=== PATIENT | female | born 1970 | race Two or more races ===

== ENCOUNTER 2021-02-04 16:10 | Inpatient (IN) | payer BC, OTHER ==
[~2021-02-04] VITALS: Ht 154.9 cm; Wt 98.5 kg
[2021-02-04 18:39] LABS: Basophils # (auto) 0 10 ^3/uL (0-0.2); Basophils % (auto) 0.3 % (0.0-2.0); Eosinophils # (auto) 0.2 10 ^3/uL (0-0.8); Eosinophils % (auto) 1.5 % (0.0-7.0); Hemoglobin 14.4 g/dL (12.2-16.2); Lymphocytes # (auto) 4.7 10 ^3/uL (0.4-5.4); Lymphocytes % (auto) 31.7 % (10.0-50.0); Mean Corpuscular Hemoglobin 28.6 pg (28.0-32.0); Mean Corpuscular Hgb Conc. 33.4 g/dL (32.0-36.0); Mean Corpuscular Volume 85.4 fL (80.0-100.0); Monocytes % (auto) 6.5 % (0.0-12.0); Nucleated Red Blood Cells % 0.1 %; Red Blood Cells 5.04 10^6/uL (4.0-5.20)
[2021-02-04 18:50] LABS: Chloride 101 mmol/L (98-107); Potassium 3.8 mmol/L (3.5-5.1); Sodium 135 mmol/L (136-145)
[2021-02-04 18:59] LABS: Alanine Aminotransferase 34 U/L (13-56); Albumin 3.3 g/dL (3.4-5.0); Alkaline Phosphatase 130 U/L (45-117); Anion Gap 5 (5-15); Aspartate Aminotransferase 20 U/L (15-37); BUN/Creatinine Ratio 14.1; Bilirubin, Total 0.2 mg/dL (0.2-1.0); Blood Urea Nitrogen 12 mg/dL (7-18); Calcium 9.1 mg/dL (8.5-10.1); Carbon Dioxide 29 mmol/L (21-32); GFR African American 91 mL/min; GFR Non-African American 75 mL/min; Glucose 342 mg/dL (74-106); Total Protein 8.4 g/dL (6.4-8.2)
[2021-02-04] MEDS ORDERED: HYDROcodone-ACET 5/325MG TAB PO ONE (22:00)
[2021-02-04] MEDS ORDERED: SODIUM CHLORIDE 0.9% 1,000 ML IV ONE (22:15)
[2021-02-04] MEDS: KETOROLAC TROMETH 60MG/2ML VIAL IM ONE (23:07)
[2021-02-05] MEDS ORDERED: HYDROcodone-ACET 7.5/325MG TAB PO ONE (03:45)
[2021-02-05] MEDS: KETOROLAC TROMETH 60MG/2ML VIAL IM ONE (04:41)
[2021-02-05] MEDS ORDERED: AZITHROMYCIN 500MG/ 250ML 250 ML IV ONE (07:15)
[2021-02-05] MEDS ORDERED: DOCUSATE SOD 100 MG CAP PO PRN (07:15)
[2021-02-05] MEDS ORDERED: NITROGLYCERIN 0.4 MG SL TAB SL PRN (07:15)
[2021-02-05] MEDS ORDERED: DEXTROSE (50%) 50ML SYRG IV PRN (07:15)
[2021-02-05] MEDS ORDERED: MORPHINE SULFATE INJECTION 2 MG/ML SYRG IV PRN (07:15)
[2021-02-05] MEDS ORDERED: ONDANSETRON HCL 4 MG/2 ML VIAL IV PRN (07:15)
[2021-02-05] MEDS ORDERED: SODIUM CHLORIDE 0.9% 1,000 ML IV ONE (07:15)
[2021-02-05] MEDS ORDERED: ACETAMINOPHEN 325 MG TAB PO PRN (07:15)
[2021-02-05] MEDS ORDERED: TEMAZEPAM 15 MG CAP PO PRN (07:15)
[2021-02-05] MEDS ORDERED: hydrALAZINE HCL 20 MG/ML VL IV PRN (07:15)
[2021-02-05 08:06] LABS: Cholesterol 163 mg/dL (< 200); HDL Cholesterol 65 mg/dL (40-59); LDL Cholesterol 86 mg/dL (< 100); Triglycerides 82 mg/dL (< 150)
[2021-02-05] MEDS: ZINC SULFATE 220mg CAP or TAB PO SCH (09:26)
[2021-02-05] MEDS: MULTIPLE VITAMIN TAB PO SCH (09:27)
[2021-02-05] MEDS: ASCORBIC ACID 500 MG TAB PO SCH ×2 (09:27→22:15)
[2021-02-05] MEDS: ENOXAPARIN SOD 40 MG/0.4 ML SYRINGE SC SCH (09:27)
[2021-02-05] MEDS: FAMOTIDINE 20 MG TAB PO SCH ×2 (09:27→22:15)
[2021-02-05] MEDS: ENALAPRIL MALEATE 10 MG TAB PO SCH (09:44)
[2021-02-05 09:59] LABS: Urine Bacteria NONE SEEN /hpf (None Seen); Urine Blood Negative /uL (Negative); Urine Mucus FEW (None Seen); Urine Specific Gravity 1.017 (1.001-1.035); Urine WBC <1 /hpf (0 - 5)
[2021-02-05 10:41] VITALS: BP 133/71
[2021-02-05] MEDS: ACCU-CHEK COMFORT CURVE STRIP VI SCH ×3 (12:39→22:49)
[2021-02-05] MEDS: InsuLIN REG 1unit/0.01ml Soln (100units/ml) SC SCH ×3 (12:46→23:14)
[2021-02-05] MEDS: MORPHINE SULFATE 4 MG/ML SYR/VIAL IV PRN ×2 (13:04→18:40)
[2021-02-05] MEDS ORDERED: SUMAtriptan SUCCINATE 25 MG TAB PO ONE (15:45)
[2021-02-05] MEDS ORDERED: AMLO-489 PO (18:49)
[2021-02-05] MEDS ORDERED: OMEP-434 PO (18:49)
[2021-02-05] MEDS ORDERED: METF-370 PO (18:49)
[2021-02-05] MEDS ORDERED: ENAL20TA8 PO (18:49)
[2021-02-05] MEDS ORDERED: GLIM4TAB42 PO (18:49)
[2021-02-05] MEDS: HYDROcodone-ACET 5/325MG TAB PO PRN (22:26)
[2021-02-05 22:32] VITALS: BP 148/67
[2021-02-06 04:28] VITALS: BP 124/74
[2021-02-06] MEDS: HYDROcodone-ACET 5/325MG TAB PO PRN ×2 (05:01→21:16)
[2021-02-06] MEDS: ACCU-CHEK COMFORT CURVE STRIP VI SCH ×4 (06:27→21:20)
[2021-02-06] MEDS: InsuLIN REG 1unit/0.01ml Soln (100units/ml) SC SCH ×4 (06:31→22:23)
[2021-02-06 06:39] LABS: Basophils # (auto) 0.1 10 ^3/uL (0-0.2); Basophils % (auto) 0.8 % (0.0-2.0); Eosinophils # (auto) 0.2 10 ^3/uL (0-0.8); Eosinophils % (auto) 1.5 % (0.0-7.0); Hematocrit 40.2 % (36.0-46.0); Hemoglobin 13.3 g/dL (12.2-16.2); Lymphocytes # (auto) 5.4 10 ^3/uL (0.4-5.4); Lymphocytes % (auto) 38.8 % (10.0-50.0); Mean Corpuscular Hemoglobin 28.1 pg (28.0-32.0); Mean Corpuscular Hgb Conc. 33.2 g/dL (32.0-36.0); Mean Corpuscular Volume 84.7 fL (80.0-100.0); Monocytes # (auto) 0.8 10 ^3/uL (0-1.3); Neutrophils # (auto) 7.4 10 ^3/uL (1.6-8.6); Neutrophils % (auto) 52.9 % (37.0-80.0); Nucleated Red Blood Cells % 0.1 %; Red Blood Cells 4.74 10^6/uL (4.0-5.20); Red Cell Distribution Width 13.8 % (11.8-14.3)
[2021-02-06 06:43] LABS: Albumin 2.8 g/dL (3.4-5.0); BUN/Creatinine Ratio 13.9; Calcium 8.3 mg/dL (8.5-10.1)
[2021-02-06 06:45] LABS: Bilirubin, Total 0.4 mg/dL (0.2-1.0); Total Protein 7.2 g/dL (6.4-8.2)
[2021-02-06 08:00] VITALS: BP 133/86
[2021-02-06 09:00] VITALS: BP 133/86
[2021-02-06] MEDS: MORPHINE SULFATE 4 MG/ML SYR/VIAL IV PRN ×2 (09:35→19:09)
[2021-02-06] MEDS: ENOXAPARIN SOD 40 MG/0.4 ML SYRINGE SC SCH (09:35)
[2021-02-06] MEDS: ASCORBIC ACID 500 MG TAB PO SCH ×2 (09:37→21:14)
[2021-02-06] MEDS: ENALAPRIL MALEATE 10 MG TAB PO SCH (09:37)
[2021-02-06] MEDS: ZINC SULFATE 220mg CAP or TAB PO SCH (09:37)
[2021-02-06] MEDS: MULTIPLE VITAMIN TAB PO SCH (09:37)
[2021-02-06] MEDS: FAMOTIDINE 20 MG TAB PO SCH ×2 (09:38→21:15)
[2021-02-06] MEDS ORDERED: LORazepam 2MG/ML-1ML VIAL IV PRN (09:45)
[2021-02-06] MEDS: ASPirin-EC 81 mg tab PO SCH (12:29)
[2021-02-06 13:00] VITALS: BP 101/57
[2021-02-06 17:00] VITALS: BP 130/82
[2021-02-06] MEDS: ATORVASTATIN 20 MG TAB PO SCH (21:16)
[2021-02-06 22:00] VITALS: BP 130/73
[2021-02-07 05:00] VITALS: BP 102/61
[2021-02-07] MEDS: MORPHINE SULFATE 4 MG/ML SYR/VIAL IV PRN (05:53)
[2021-02-07] MEDS: ACCU-CHEK COMFORT CURVE STRIP VI SCH ×4 (06:40→21:25)
[2021-02-07] MEDS: InsuLIN REG 1unit/0.01ml Soln (100units/ml) SC SCH ×4 (06:41→22:00)
[2021-02-07 08:49] VITALS: BP 134/73
[2021-02-07] MEDS: ASPirin-EC 81 mg tab PO SCH (10:18)
[2021-02-07] MEDS: HYDROcodone-ACET 5/325MG TAB PO PRN (10:19)
[2021-02-07] MEDS: ZINC SULFATE 220mg CAP or TAB PO SCH (10:19)
[2021-02-07] MEDS: ASCORBIC ACID 500 MG TAB PO SCH ×2 (10:19→22:00)
[2021-02-07] MEDS: MULTIPLE VITAMIN TAB PO SCH (10:19)
[2021-02-07] MEDS: ENOXAPARIN SOD 40 MG/0.4 ML SYRINGE SC SCH (10:20)
[2021-02-07] MEDS: ENALAPRIL MALEATE 10 MG TAB PO SCH (10:20)
[2021-02-07] MEDS: FAMOTIDINE 20 MG TAB PO SCH ×2 (10:20→22:00)
[2021-02-07 13:00] VITALS: BP 131/70
[2021-02-07] MEDS ORDERED: ALPRAZolam 0.5 MG TAB PO PRN (14:15)
[2021-02-07] MEDS ORDERED: ASPI-543 PO (15:47)
[2021-02-07] MEDS ORDERED: CLOP75TA28 PO (15:47)
[2021-02-07 17:00] VITALS: BP 125/73
[2021-02-07] MEDS: MECLIZINE HCL 25 MG TAB PO PRN (17:22)
[2021-02-07 22:00] VITALS: BP 149/74
[2021-02-07] MEDS: ATORVASTATIN 20 MG TAB PO SCH (22:00)
[2021-02-08 05:00] VITALS: BP 114/72
[2021-02-08] MEDS: ACCU-CHEK COMFORT CURVE STRIP VI SCH ×3 (06:05→17:14)
[2021-02-08] MEDS: HYDROcodone-ACET 5/325MG TAB PO PRN ×2 (06:25→17:58)
[2021-02-08] MEDS: InsuLIN REG 1unit/0.01ml Soln (100units/ml) SC SCH ×3 (06:25→17:14)
[2021-02-08 07:50] VITALS: BP 137/74
[2021-02-08] MEDS: ASPirin-EC 81 mg tab PO SCH (09:02)
[2021-02-08] MEDS: ENALAPRIL MALEATE 10 MG TAB PO SCH (09:02)
[2021-02-08] MEDS: MULTIPLE VITAMIN TAB PO SCH (09:02)
[2021-02-08] MEDS: ZINC SULFATE 220mg CAP or TAB PO SCH (09:02)
[2021-02-08] MEDS: ASCORBIC ACID 500 MG TAB PO SCH (09:03)
[2021-02-08] MEDS: ENOXAPARIN SOD 40 MG/0.4 ML SYRINGE SC SCH (09:03)
[2021-02-08] MEDS: FAMOTIDINE 20 MG TAB PO SCH (09:03)
[2021-02-08 12:30] VITALS: BP 119/62
[2021-02-08] MEDS: MECLIZINE HCL 25 MG TAB PO PRN (14:22)
[2021-02-08 16:28] VITALS: BP 116/73
[2021-02-08 16:30] VITALS: BP 137/74
== END 2021-02-08 18:50 | disposition home health service (06) | DRG 65 ==
LOC: ER 16:10 → TELE 16:11 → TELE-WESTW 02-05 17:30
PROVIDERS: ADMIT Nurse Practitioner; ATTEND Nurse Practitioner
DX: I63.532 Cerebral infarction due to unspecified occlusion or stenosis of left posterior cerebral artery (principal); Z68.41 Body mass index [BMI] 40.0-44.9, adult; G81.91 Hemiplegia, unspecified affecting right dominant side; E11.40 Type 2 diabetes mellitus with diabetic neuropathy, unspecified; E78.5 Hyperlipidemia, unspecified; I10 Essential (primary) hypertension; E66.01 Morbid (severe) obesity due to excess calories; Z20.822 Contact with and (suspected) exposure to COVID-19; Z79.82 Long term (current) use of aspirin; Z82.49 Family history of ischemic heart disease and other diseases of the circulatory system; Z83.3 Family history of diabetes mellitus; Z90.710 Acquired absence of both cervix and uterus; Z79.84 Long term (current) use of oral hypoglycemic drugs; D72.829 Elevated white blood cell count, unspecified
CPT/HCPCS: 36415; 70450; 70551; 71045; 80053; 80061; 81001; 82962; 83036; 84484; 85025; 85652; 87086; 87426; 93005; 93306; 93886; 96361; 96365; 96372; 97116; G0378; J1815; J1885; J2405

== ENCOUNTER 2021-07-13 17:08 | Emergency (ER) | payer BC ==
[~2021-07-13] VITALS: Ht 157.5 cm; Wt 83.9 kg
[~2021-07-13 17:08] MED LIST: AMLO-489 PO; ASPI-543 PO; CLOP75TA28 PO; ENAL20TA8 PO; GLIM4TAB42 PO; METF-370 PO; OMEP-434 PO
[2021-07-13] MEDS ORDERED: ACETAMINOPHEN 325 MG TAB PO ONE (20:30)
[2021-07-13 20:45] LABS: Urine Bacteria FEW /hpf (None Seen); Urine Blood Negative /uL (Negative); Urine Specific Gravity 1.022 (1.001-1.035); Urine WBC 2 /hpf (0 - 5)
[2021-07-13 21:18] VITALS: BP 160/87
== END 2021-07-13 22:42 | disposition home or self-care (01) ==
LOC: ER 17:08
DX: S29.012A Strain of muscle and tendon of back wall of thorax, initial encounter (principal); E11.9 Type 2 diabetes mellitus without complications; I10 Essential (primary) hypertension; Z86.73 Personal history of transient ischemic attack (TIA), and cerebral infarction without residual deficits; X58.XXXA Exposure to other specified factors, initial encounter; Y93.89 Activity, other specified; Y92.89 Other specified places as the place of occurrence of the external cause; Y99.8 Other external cause status
CPT/HCPCS: 72128; 81001; 93005

== ENCOUNTER 2021-12-03 19:44 | Emergency (ER) | payer SELFPAY ==
[~2021-12-03] VITALS: Ht 152.4 cm; Wt 97.1 kg
[2021-12-03 23:27] LABS: Basophils # (auto) 0 10 ^3/uL (0-0.2); Basophils % (auto) 0.3 % (0.0-2.0); Eosinophils # (auto) 0.5 10 ^3/uL (0-0.8); Eosinophils % (auto) 3.8 % (0.0-7.0); Hematocrit 41.8 % (36.0-46.0); Lymphocytes # (auto) 5.3 10 ^3/uL (0.4-5.4); Lymphocytes % (auto) 40.7 % (10.0-50.0); Mean Corpuscular Hemoglobin 27.7 pg (28.0-32.0); Mean Corpuscular Hgb Conc. 33.5 g/dL (32.0-36.0); Mean Corpuscular Volume 82.7 fL (80.0-100.0); Monocytes # (auto) 0.7 10 ^3/uL (0-1.3); Monocytes % (auto) 5.1 % (0.0-12.0); Neutrophils # (auto) 6.5 10 ^3/uL (1.6-8.6); Neutrophils % (auto) 50.1 % (37.0-80.0); Red Blood Cells 5.06 10^6/uL (4.0-5.20); Red Cell Distribution Width 14.1 % (11.8-14.3); White Blood Cell 12.9 10^3/uL (4.4-10.8)
[2021-12-03 23:44] LABS: Albumin 3.2 g/dL (3.4-5.0); Calcium 9.5 mg/dL (8.5-10.1)
[2021-12-03 23:46] LABS: BUN/Creatinine Ratio 13.3
[2021-12-03 23:49] LABS: Bilirubin, Total 0.2 mg/dL (0.2-1.0); Total Protein 7.4 g/dL (6.4-8.2)
[2021-12-04 00:43] VITALS: BP 144/78
== END 2021-12-04 00:45 | disposition home or self-care (01) ==
LOC: ER 19:44
DX: R53.1 Weakness (principal); E11.9 Type 2 diabetes mellitus without complications; I10 Essential (primary) hypertension; Z86.73 Personal history of transient ischemic attack (TIA), and cerebral infarction without residual deficits
CPT/HCPCS: 36415; 80053; 85025; 93005

== ENCOUNTER 2022-03-11 18:38 | Emergency (ER) | payer BC ==
[~2022-03-11] VITALS: Ht 147.3 cm; Wt 95.3 kg
[2022-03-11 20:21] LABS: Basophils # (auto) 0.1 10 ^3/uL (0-0.2); Basophils % (auto) 0.7 % (0.0-2.0); Eosinophils # (auto) 0.3 10 ^3/uL (0-0.8); Eosinophils % (auto) 2.4 % (0.0-7.0); Hematocrit 42.7 % (36.0-46.0); Hemoglobin 14.6 g/dL (12.2-16.2); Lymphocytes # (auto) 5.3 10 ^3/uL (0.4-5.4); Lymphocytes % (auto) 36.5 % (10.0-50.0); Mean Corpuscular Hemoglobin 28.7 pg (28.0-32.0); Mean Corpuscular Hgb Conc. 34.2 g/dL (32.0-36.0); Mean Corpuscular Volume 83.7 fL (80.0-100.0); Monocytes % (auto) 6.8 % (0.0-12.0); Neutrophils # (auto) 7.8 10 ^3/uL (1.6-8.6); Neutrophils % (auto) 53.6 % (37.0-80.0); Nucleated Red Blood Cells % 0.1 %; Red Cell Distribution Width 14.6 % (11.8-14.3); White Blood Cell 14.5 10^3/uL (4.4-10.8)
[2022-03-11 20:40] LABS: Albumin 3.5 g/dL (3.4-5.0); BUN/Creatinine Ratio 14.1; Calcium 9.7 mg/dL (8.5-10.1); Potassium 4.2 mmol/L (3.5-5.1)
[2022-03-11 20:43] LABS: Bilirubin, Total 0.3 mg/dL (0.2-1.0); Total Protein 8.4 g/dL (6.4-8.2)
[2022-03-12] MEDS ORDERED: KETOROLAC TROMETH 30 MG/ML 1ML VIAL IV ONE (01:00)
[2022-03-12] MEDS ORDERED: METOCLOPRAMIDE HCL 5MG/ml INJ 2ml VIAL IV ONE (01:00)
[2022-03-12] MEDS ORDERED: ACETAMINOPHEN 325 MG TAB PO ONE (01:00)
[2022-03-12] MEDS ORDERED: SODIUM CHLORIDE 0.9% 1,000 ML IV ONE (01:00)
[2022-03-12 05:00] VITALS: BP 125/54
== END 2022-03-12 05:08 | disposition home or self-care (01) ==
LOC: ER 18:38
DX: R22.43 Localized swelling, mass and lump, lower limb, bilateral (principal); R05.9 Cough, unspecified; R06.02 Shortness of breath; M54.9 Dorsalgia, unspecified; I10 Essential (primary) hypertension; E11.9 Type 2 diabetes mellitus without complications; Z86.73 Personal history of transient ischemic attack (TIA), and cerebral infarction without residual deficits; Z79.82 Long term (current) use of aspirin; Z79.01 Long term (current) use of anticoagulants; Z79.899 Other long term (current) drug therapy
CPT/HCPCS: 36415; 71045; 80053; 83880; 84484; 85025; 93005; 93970; 96361; 96374; 96375; 99285; J1885; J2765

== ENCOUNTER 2023-12-12 06:15 | Emergency (ER) | payer BC ==
[~2023-12-12] VITALS: Ht 147.3 cm; Wt 95.4 kg
[~2023-12-12 06:15] MED LIST changes: -AMLO-489 PO; +AMLO1TAB22 PO; +ENAL1TAB48 PO; -ENAL20TA8 PO
[2023-12-12 07:13] VITALS: BP 135/87; PULSE 100; RESP 18; TEMP 98.1; O2SAT 95
[2023-12-12] MEDS ORDERED: TRIA0.02 TOP (07:26)
[2023-12-12] MEDS ORDERED: TOB03OS OP (07:26)
[2023-12-12] MEDS ORDERED: CEPH500C PO (07:26)
[2023-12-12] MEDS ORDERED: methylPREDNISolone SOD SUCC 125 MG/2 ML VL IM ONE (07:30)
[2023-12-12] MEDS ORDERED: cefTRIAXone SOD 1,000 MG VL IM ONE (07:30)
== END 2023-12-12 07:53 | disposition home or self-care (01) ==
LOC: ER 06:15
DX: T78.49XA Other allergy, initial encounter (principal); H10.31 Unspecified acute conjunctivitis, right eye; L08.9 Local infection of the skin and subcutaneous tissue, unspecified; I10 Essential (primary) hypertension; E11.9 Type 2 diabetes mellitus without complications; Z86.73 Personal history of transient ischemic attack (TIA), and cerebral infarction without residual deficits; Z79.899 Other long term (current) drug therapy; X58.XXXA Exposure to other specified factors, initial encounter
CPT/HCPCS: 96372; 99284; J0696; J2930